=== PATIENT | male | born 1990 | race Caucasian/White ===

== ENCOUNTER → 2021-04-06 17:26 | Outpatient (CLI) | payer BC, SELFPAY ==
--- NOTE | 2021-04-06 | DI.MRI.S_ITS ---
PROCEDURE: MR KNEE LT WO CON INDICATIONS: unspecified internal derangement of left knee TECHNIQUE: Noncontrast sagittal PD fast spin echo and T2 fast spin echo with fat saturation, sagittal 3-D FLASH with fat saturation; coronal T1 spin echo and PD fast spin echo with fat saturation, and axial PD fast spin echo with fat saturation through the knee. COMPARISON: [facility], CR, KNEE 3V LEFT, 05/16/2011, 15:44. [facility], CR, XR KNEE 4+ VIEWS LEFT, 03/25/2021, 12:27. FINDINGS: Image quality: Excellent. Menisci: The medial and lateral menisci demonstrate normal morphology and internal signal. The meniscal root ligaments appear intact. Cruciate ligaments: The anterior and posterior cruciate ligaments appear intact. Medial structures: The medial collateral ligament appears intact. The semimembranosus tendon insertions and meniscocapsular junction appear intact. Visualized portions of the pes anserinus tendons appear normal. No abnormal bursal fluid. Lateral structures: The lateral collateral ligament, long and short heads of the biceps femoris tendon appear intact. The popliteus tendon appears intact. No signs of posterolateral corner injury. Iliotibial band appears normal. Anterior structures: There is mild proximal patellar tendinosis. The distal quadriceps tendon is intact. A congenitally shallow trochlear groove is seen with lateral patellar tilting and minimal lateral patellar subluxation at rest. The tibial tubercle-trochlear groove distance is within normal limits as positioned during the exam. There is no significant edema in Hoffa's fat pad. Bones and cartilage: No acute trabecular bone injury. Chronic cortical irregularity is seen at the odd facet of the patella and at the anterolateral aspect of the lateral femoral condyle without associated edema, most likely secondary to a remote prior episode of transient lateral patellar dislocation. The articular cartilages in the medial and lateral femorotibial compartments, as well as in the anterior patellofemoral compartment, are maintained. Joint space: Small joint effusion. A small amount of nonspecific prepatellar subcutaneous soft tissue edema is present. IMPRESSION: 1. No acute trabecular bone injury. The cruciate and collateral ligaments are intact. There is no meniscal tear. 2. Congenitally shallow trochlear groove with lateral patellar tilting and mild lateral patellar subluxation. The tibial tubercle-trochlear groove distance is within normal limits. 3. Mild chronic cortical irregularity of the odd facet of the patella and the anterolateral of the lateral femoral condyle most likely secondary to a remote prior episode of transient lateral patellar dislocation. 4. Small joint effusion. Dictated by: Dong Goldman M.D. on 04/07/2021 at 9:00 Approved by: Dong Goldman M.D. on 04/07/2021 at 9:09
== END ==
PROVIDERS: PCP Family Medicine; Referring Provider Physician Assistant; Visit Provider Physician Assistant
DX: M23.92 Unspecified internal derangement of left knee (principal); M25.462 Effusion, left knee
CPT/HCPCS: 73721

== ENCOUNTER → 2025-07-20 14:55 | Outpatient (CLI) | payer BC, SELFPAY ==
[2025-07-20 17:10] LABS: Add Manual Diff / Slide Review NO; Hematocrit 45.9 % (41-53); Hemoglobin 15.9 g/dL (13.5-17.5); Lymphocytes Absolute Auto 1500 /uL (1100-4500); Mean Corpuscular HGB Conc 34.7 % (30-36); Mean Corpuscular Hemoglobin 30.5 PG (26-34); Mean Corpuscular Volume 87.8 fL (80-100); Platelet Count 236 X10^3/uL (150-400)
[2025-07-20 17:42] LABS: Alanine Aminotransferase 50 IU/L (<50); Albumin 4.3 g/dL (3.5-5.0); Albumin Globulin Ratio 1.7 (1.0-2.8); Alkaline Phosphatase 57 U/L (38-126); Blood Urea Nitrogen 26 mg/dL (9-20); Calcium 9.0 mg/dL (8.4-10.2); Carbon Dioxide 27 mmol/L (22-32); Chloride 101 mmol/L (98-107); Estimated Glomerular Filt Rate > 60 mL/min (>60); Globulin 2.5 g/dL (1.7-4.1); Glucose 61 mg/dL (70-99); HEMOLYSIS < 15 (0-50); Potassium 4.0 mmol/L (3.4-5.1); Sodium 139 mmol/L (137-145); Total Protein 6.8 g/dL (6.3-8.2)
[2025-07-20 18:12] LABS: TSH w/ Reflex to FT4 0.36 uIU/mL (0.47-4.68)
[2025-07-20 18:53] LABS: Hemoglobin A1C% w Est Avg Glu 4.9 % (4.0-6.0)
[2025-07-20 19:12] LABS: Free T4, Direct Thyroxine 0.74 ng/dL (0.78-2.19)
== END ==
PROVIDERS: PCP Family Medicine; Referring Provider Family Medicine; Visit Provider Family Medicine
DX: R79.89 Other specified abnormal findings of blood chemistry (principal); E03.9 Hypothyroidism, unspecified; Z83.3 Family history of diabetes mellitus
CPT/HCPCS: 36415; 80053; 83036; 84403; 84439; 84443; 85025